=== PATIENT | female | born 1945 | race Caucasian/White ===

== ENCOUNTER 2018-07-16 08:21 | Day surgery (SDC) | payer OTHER, BC ==
--- OUTSIDE RECORDS SUMMARY | 2018-07-16 08:26 | XMS REPORT | Clinical Summary ---
:1945 Author Organization [facility] Address [address] [place] [address] Care Team Providers Name Role Phone Asked, No Pcp Primary Care Provider Unavailable Allergies Active Allergy Reactions Severity Noted Date Comments Codeine GI Bleeding 04/06/2017 Meperidine Other (See Comments) High 04/06/2017 seizures Medications Medication Sig Dispensed Refills Start Date End Date Status levothyroxine Take 100 mcg by 0 Active (SYNTHROID, LEVOXYL) 100 mouth daily. mcg tablet amLODIPine (NORVASC) 10 Take 12.5 mg by 0 Active mg tablet mouth daily. losartan (COZAAR) 100 MG Take 100 mg by 0 Active tablet mouth daily. gabapentin (NEURONTIN) Take 300 mg by 0 Active 300 mg capsule mouth 2 (two) times a day. HYDROcodone-acetaminophe Take 1 tablet by 0 Active n (NORCO) 5-325 mg per mouth. tablet ibandronate (BONIVA) 150 Take 150 mg by 0 Active mg tablet mouth every 30 (thirty) days. Take in AM with glass of water prior to food, don't lie down for 30 minutes. metroNIDAZOLE (FLAGYL) Take 500 mg by 0 Active 500 MG tablet mouth 3 (three) times a day. therapeutic multivitamin Take 1 tablet by 0 Active (THERAGRAN) tablet mouth daily. aspirin (ECOTRIN) 81 MG Take 81 mg by 0 Active enteric coated tablet mouth daily. cetirizine (ZyrTEC) 10 Take 10 mg by 0 Active MG tablet mouth daily. Active Problems Not on file Family History Medical History Relation Name Comments Cancer Father Cancer Maternal Grandmother Diabetes Paternal Grandmother Cancer Sister Relation Name Status Comments Father Maternal Grandmother Paternal Grandmother Sister Social History Tobacco Use Types Packs/Day Years Used Date Current Every Day Smoker Cigarettes 0.25 30 Smokeless Tobacco: Never Used Alcohol Use Drinks/Week oz/Week Comments Yes 1 Glasses of wine 0.6 Sex Assigned at Date Recorded Not on file Job Start Date Occupation Industry Not on file Not on file Not on file Travel History Travel Start Travel End No recent travel history available. Last Filed Vital Signs Not on file Plan of Treatment Not on file Results Not on fileafter 07/15/2017 Insurance Payer Benefit Plan / Group Subscriber ID Type Phone Address BCBS BCBS CHOICE PPO/FEDERAL EMPL PPO xxxxxxxxxxxx PPO MEDICARE MEDICARE PART A AND B xxxxxxxxxx Medicare [place], [place] [facility] ([place] [place] [address] Advance Directives Patient has advance care planning documents on file. For more information, please contact:Preet Woods[address] [place] [address]
[2018-07-16] MEDS ORDERED: PHENYLEPHRINE 10% OPTH 5ML ONE (09:18)
[2018-07-16] MEDS ORDERED: NA CHLORIDE 0.9% 500 ML ONE (09:18)
[2018-07-16] MEDS ORDERED: CYCLOPENTOLATE 1% OPTH 2 ML ONE (09:19)
[2018-07-16] MEDS ORDERED: CYCLOPENTOLATE 1% OPTH 2 ML OPTH ONE ×2 (09:20→09:27)
[2018-07-16] MEDS ORDERED: PHENYLEPHRINE 10% OPTH 5ML OPTH ONE ×2 (09:20→09:27)
[2018-07-16] MEDS: TETRACAINE HCL 0.5% 4ML OPTH ONE ×2 (09:22→10:45)
[2018-07-16] MEDS: BUPIVACAINE 0.25% PF 10 ML VIAL ONE ×2 (09:23→10:46)
[2018-07-16] MEDS: LIDOCAINE 2% MPF 5 ML VIAL ONE ×2 (09:23→10:46)
[2018-07-16] MEDS ORDERED: NS 0.9% VIAL 10 ML ONE (09:54)
[2018-07-16 10:01] VITALS: O2SAT 97
[2018-07-16] MEDS: BALANCED SALT IRRIG PLAIN 500 ML BTL IRR ONE ×2 (10:19→11:00)
[2018-07-16] MEDS: DUOVISC 1 KIT OPTH ONE ×2 (10:19→11:00)
[2018-07-16] MEDS: EPINEPHRINE/PF 1 MG/ML AMP ONE ×2 (10:19→11:00)
[2018-07-16] MEDS: MOXIFLOXACIN HCL 10 DROPS/ML **OR USE OPTH ONE ×3 (10:20→11:31)
[2018-07-16] MEDS ORDERED: PROPOFOL 200 MG/20 ML VIAL IV ONE (10:30)
[2018-07-16] MEDS ORDERED: METHOCARBAMOL IV ONE (10:45)
[2018-07-16] MEDS ORDERED: NA CHLORIDE 0.9% IV ONE (10:45)
[2018-07-16] MEDS ORDERED: LIDOCAINE 2% MPF 5 ML VIAL ONE (10:47)
[2018-07-16] MEDS ORDERED: FENTANYL CITR 100 MCG/2 ML ONE (10:53)
--- NOTE | 2018-07-16 11:41 | P.BOP ---
Preoperative diagnosis: Nuclear sclerotic cataract and regular astigmatism OD Postoperative diagnosis: Same Primary procedure: Phacoemulsification with Toric IOL OD Estimated blood loss: None Anesthesia: Local (Subtenon's infusion with anesthesia for cataract surgery) Implants: SA6AT5 +17.5 @ 168 Transferred to: Other (Day surgery) Condition: Good
[2018-07-16 11:57] VITALS: BP 124/56; TEMP 98.1
[2018-07-16] MEDS ORDERED: EPINEPHRINE/PF 1 MG/ML AMP ONE (12:01)
--- NOTE | 2018-07-16 22:51 | OP ---
Date of Procedure: 07/16/2018 Surgeon: Brianda Bates MD Anesthesiologist: Sola Cochran CRNA and Mike Patel M.D. Preoperative Diagnosis: Nuclear sclerotic cataract and regular astigmatism, OD( right eye). Operation Performed: Phacoemulsification with Toric intraocular lens implant, right eye. Anesthesia: per cataract surgery. Complications: None. Description Of Procedure: In day surgery, the patient was prepped with Betadine and draped. A conjunctival incision was made in the inferior nasal quadrant with Azeb scissors. A sub-Tenon block consisting of a 1:1 mixture of 2% Xylocaine and 0.25% bupivacaine was placed through the conjunctival incision with a blunt cannula. A Honan balloon was placed over the eye and the patient was transferred to the operating room. In the operating room, the patient was prepped and draped in the usual sterile fashion for ophthalmic surgery. A lid speculum was placed in the right eye. Two paracentesis sites were made superiorly and inferiorly in the limbal cornea. Viscoat was placed in the anterior chamber and a crescent blade was used to make a corneal groove and tunnel, and a keratome was used to enter the anterior chamber. Provisc was placed in the anterior chamber and a 360-degree capsulotomy was performed with a cystitome. The lens was hydrodissected with BSS and rotated freely. The lens was removed with a stop and chop technique. A 6.93 phaco CDE was used to remove the lens. Residual cortex was removed with the irrigation and aspiration. Provisc was placed in the capsular bag. A SA6AT5 +17.5 at 168 degrees lens was placed in the capsular bag without complications. Irrigation and aspiration were used to remove residual viscoelastic. The paracentesis sites were hydrated with BSS. The wound and paracentesis sites were inspected and found to be watertight. Vigamox 0.07 cc was placed intracamerally at the end of the procedure. The eye was irrigated with balanced salt solution. The eye was patched with a soft cotton patch and Navas metal shield. The patient was returned to day surgery in good condition. Comments: 1:5000 epinephrine was placed in the anterior chamber prior to Viscoat. Discharge Instructions: Ms. Garcia is discharged to home in good condition. She is to follow up at 3 today and in the a.m. JHL/MODL Voice ID: [id number] Report ID: [id number] RHONDA
== END 2018-07-16 12:17 | disposition home or self-care (01) ==
LOC: OR 08:21
PROVIDERS: ATTEND Ophthalmology Retina Specialist
PROC: 08RJ3JZ Replacement of Right Lens with Synthetic Substitute, Percutaneous Approach (ICD-10-PCS; principal; 2018-07-16 10:00)
DX: H25.11 Age-related nuclear cataract, right eye (principal); E03.9 Hypothyroidism, unspecified; I10 Essential (primary) hypertension; Z79.82 Long term (current) use of aspirin; Z79.899 Other long term (current) drug therapy; H52.221 Regular astigmatism, right eye
CPT/HCPCS: 66984; J2704; J0171 ×2; J3010; J2800

== ENCOUNTER 2018-09-10 12:52 | Day surgery (SDC) | payer OTHER, BC ==
[2018-09-10] MEDS: MOXIFLOXACIN HCL 10 DROPS/ML **OR USE OPTH ONE ×3 (12:45→14:36)
--- OUTSIDE RECORDS SUMMARY | 2018-09-10 12:55 | XMS REPORT | Clinical Summary ---
:1945 Author Organization [facility] Address [address] [place] [address] Care Team Providers Name Role Phone Asked, [...] Not on file Results Not on fileafter 09/09/2017 Insurance Payer Benefit Plan / Subscriber ID Effective Dates Phone Address Type Group BCBS BCBS CHOICE xxxxxxxxxxxx 2013-Present PPO PPO/FEDERAL EMPL PPO MEDICARE MEDICARE PART A xxxxxxxxxx 2017-Present [place], [place] Medicare AND B Advance Directives Patient has advance care planning documents on file. For more information, please contact:[place] [address]
[2018-09-10] MEDS: TETRACAINE HCL 0.5% 4ML OPTH ONE ×2 (13:10→14:18)
[2018-09-10] MEDS: BUPIVACAINE 0.25% PF 10 ML VIAL ONE ×2 (13:11→14:19)
[2018-09-10] MEDS: LIDOCAINE 2% MPF 5 ML VIAL ONE ×2 (13:11→14:19)
[2018-09-10] MEDS: PHENYLEPHRINE 10% OPTH 5ML ONE ×3 (13:13→13:23)
[2018-09-10] MEDS: CYCLOPENTOLATE 1% OPTH 2 ML ONE ×3 (13:13→13:23)
[2018-09-10] MEDS ORDERED: NA CHLORIDE 0.9% 500 ML ONE (13:21)
[2018-09-10] MEDS ORDERED: NS 0.9% VIAL 10 ML ONE (13:24)
[2018-09-10] MEDS: DUOVISC 1 KIT OPTH ONE ×2 (13:53→14:31)
[2018-09-10] MEDS: BALANCED SALT IRRIG PLAIN 500 ML BTL IRR ONE ×2 (13:53→14:31)
[2018-09-10] MEDS: EPINEPHRINE/PF 1 MG/ML AMP ONE ×4 (13:58→14:38)
[2018-09-10] MEDS ORDERED: LIDOCAINE 2% MPF 5 ML VIAL ONE (14:14)
[2018-09-10] MEDS ORDERED: PROPOFOL 200 MG/20 ML VIAL IV ONE (14:14)
--- NOTE | 2018-09-10 14:57 | P.BOP ---
Preoperative diagnosis: Nuclear sclerotic cataract and regular astigmatism OS Postoperative diagnosis: Same Primary procedure: Phacoemulsification with IOL OS Estimated blood loss: None Anesthesia: Local (Subtenon's infusion with anesthesia for cataract surgery) Complications: None Implants: SA6AT4 +17.5 @ 11 degrees Transferred to: Other (Day surgery) Condition: Good
[2018-09-10 15:20] VITALS: BP 127/60; TEMP 97; O2SAT 98
--- NOTE | 2018-09-11 01:47 | OP ---
Date of Procedure: 09/10/2018 Surgeon: Brianda Bates MD Anesthesiologist: Alina Salomon CRNA and Mike Patel M.D. Preoperative Diagnosis: Nuclear sclerotic cataract, OS and regular astigmatism, OS (left eye). Operation Performed: Phacoemulsification with toric intraocular lens implant, left eye. Anesthesia: Per cataract surgery. Complications: None. Description Of Procedure: In day surgery, the patient was prepped with Betadine and draped. A conju nctival incision was made in the inferior nasal quadrant with Azeb scissors. A sub-Tenon block c onsisting of a 1:1 mixture of 2% Xylocaine and 0.25% bupivacaine was placed through the conjunctival incision with a blunt cannula. A Honan balloon was placed over the eye and the patient was transferr ed to the operating room. In the operating room, the patient was prepped and draped in the usual sterile fashion for ophthalmic surgery. A lid speculum was placed in the left eye. Two paracentesis sites were made superiorly an d inferiorly in the limbal cornea. Viscoat was placed in the anterior chamber and a crescent blade w as used to make a corneal groove and tunnel, and a keratome was used to enter the anterior chamber. Provisc was placed in the anterior chamber and a 360-degree capsulotomy was performed with a cystitom e. The lens was hydrodissected with BSS and rotated freely. The lens was removed with a stop and ch op technique. A 6.11 phaco CDE was used to remove the lens. Residual cortex was removed with the ir rigation and aspiration. Provisc was placed in the capsular bag. A SA6AT4 +17.5 at 11 degrees lens was placed in the capsular bag without complications. Irrigation and aspiration were used to remove residual viscoelastic. The paracentesis sites were hydrated with BSS. The wound and paracentesis si jeremy were inspected and found to be watertight. Vigamox 0.07 cc was placed intracamerally at the end of the procedure. The eye was irrigated with balanced salt solution. The eye was patched with a sof t cotton patch and Navas metal shield. The patient was returned to day surgery in good condition. Comments: 1:5000 epinephrine was placed in the eye prior to Viscoat. Discharge Instructions: Ms. Garcia is discharged to home in good condition. She is to follow up tod ay in the office to check her pressure and then in the a.m. DONYA/BARBARA Voice ID: [id number] Report ID: [id number]
== END 2018-09-10 15:20 | disposition home or self-care (01) ==
LOC: OR 12:52
PROVIDERS: ATTEND Ophthalmology Retina Specialist
PROC: 08RK3JZ Replacement of Left Lens with Synthetic Substitute, Percutaneous Approach (ICD-10-PCS; principal; 2018-09-10 12:00)
DX: H25.12 Age-related nuclear cataract, left eye (principal); H40.052 Ocular hypertension, left eye; H52.222 Regular astigmatism, left eye; E07.9 Disorder of thyroid, unspecified; F17.200 Nicotine dependence, unspecified, uncomplicated; Z79.82 Long term (current) use of aspirin; Z79.899 Other long term (current) drug therapy
CPT/HCPCS: 66984; J2704; J0171 ×2

== ENCOUNTER 2021-08-16 10:56 | Day surgery (SDC) | payer OTHER, BC ==
[2021-08-13 10:09] LABS: Absolute Lymphocytes (CBC) 2.1 K/uL (0.7-4.9); Hematocrit 38.8 % (36.0-45.0); Lymphocytes % 14.8 % (15.3-44.8); RBC Red Blood Cell Count 4.45 M/uL (3.86-4.86)
--- NOTE | 2021-08-13 10:15 | RAD REPORT ---
EXAM DESCRIPTION: RAD - Chest Pa And Lat (2 Views) - 08/13/2021 10:06 am CLINICAL HISTORY: Pre op pending heart cath COMPARISON: CT chest 11/09/2020 TECHNIQUE: Frontal and lateral views of the chest were obtained. FINDINGS: The lungs are normal volume. Minimal stranding at the left base is probably scarring or shaw bsegmental atelectasis. Acute infiltrate is not suspected. Interstitial pattern matches the CT study . Heart size is normal and central vasculature is within normal limits. No pleural effusion or pneumo thorax seen. No acute bony finding noted. Aortic atherosclerotic calcifications present without ane urysm. IMPRESSION: Minimal lung base parenchymal scarring. No acute cardiopulmonary finding.
[2021-08-13 10:43] LABS: Protime INR 0.93
--- NOTE | 2021-08-14 14:56 | EKG ---
Test Date: 2021-08-13 Test Time: 08:45:42 Blow Machine Tender Starch Spraying: DALI MEASUREMENT RESULTS: Intervals: Rate: 73 AR: 176 QRSD: 98 QT: 412 QTc: 453 [place]: P: 29 AR: 176 QRS: -37 T: 46 INTERPRETIVE STATEMENTS: Normal sinus rhythm Left axis deviation Moderate voltage criteria for LVH, may be normal variant Possible Lateral infarct, age undetermined Abnormal ECG Compared to ECG 05/08/2017 10:43:04 Left ventricular hypertrophy now present Myocardial infarct finding now present Sinus bradycardia no longer present Electronically Signed On 08-14-21 14:54:03 CDT by Angelo Mcmullen
[~2021-08-16 10:56] MED LIST: NA CHLORIDE 0.9% 500 ML ONE
[2021-08-16] MEDS ORDERED: MIDAZOLAM HCL 2 MG/2 ML INJ ONE (11:40)
[2021-08-16] MEDS ORDERED: HEPARIN 10,000 UNIT/10 ML VIAL IV ONE (11:40)
[2021-08-16] MEDS ORDERED: VERAPAMIL HCL 10 MG/4 ML VIAL IV ONE (11:40)
[2021-08-16] MEDS ORDERED: HEPARIN 5000 UNIT/ML 1 ML VIAL ONE (11:40)
[2021-08-16] MEDS ORDERED: FENTANYL CITR 100 MCG/2 ML ONE (11:40)
[2021-08-16] MEDS ORDERED: TICAGRELOR 90 MG TABLET PO ONE (11:56)
[2021-08-16] MEDS ORDERED: ASPIRIN 325 MG TAB ONE (11:56)
[2021-08-16] MEDS ORDERED: CLOPIDOGREL 75 MG TABLET ONE (11:56)
[2021-08-16] MEDS ORDERED: ATROPINE SULF 1 MG/10 ML SYR IV ONE (11:57)
[2021-08-16] MEDS ORDERED: NA CHLORIDE 0.9% 100 ML IV ONE (12:04)
[2021-08-16 15:48] VITALS: BP 142/57; O2SAT 95
--- NOTE | 2021-08-17 00:24 | OP ---
Date of Procedure: 08/16/2021 Surgeon: MARU DAVIDSON Procedure Performed: 1.Selective coronary angiogram. 2.Left heart catheterization. 3.Right heart catheterization. Indication: Aortic valve stenosis evaluation with significant shortness of breath on exertion. Access: 1.Right radial artery, 6-Indian, closed with TR band. 2.Right IJ, 7-Indian, closed with manual pressure. Complications: None. Bleeding: Less than 10 mL. Used Versed and fentanyl for sedation. Total sedation time was 45 minutes. Description Of Procedure: After risks, benefits, alternatives were explained, the patient agreed to proceed and signed informed consent. The patient was brought into the cardiac catheterization labora tory, prepped and draped in usual sterile fashion. Then, we accessed the right radial artery using p ediatric micropuncture kit, placed a 6-Indian Slender sheath, and took a micropuncture kit and access ed right IJ with ultrasound guidance, placed a 7-Indian Taylors sheath. Then I took 7-Indian balloo n-tipped Throckmorton catheter into the right atrium, right ventricle, pulmonary artery, and wedge and obtain ed waveform and pressure. Then, I did the thermodilution cardiac output measurements, then removed t he Throckmorton. Then I took a [place] 5-Indian 4.0 catheter into the aortic root over a J-wire through the ra dial access, engaged left main and right coronary artery, took standard views. Then, the same cathet er over the J-wire crossed into the LAD, recorded LVEDP and pullback recorded very mild gradient. Th en removed the catheter and the sheath, placed TR band, good hemostasis. Removed the IJ sheath and m anual pressure was used with good hemostasis. Findings: 1.Left main: Large and normal. 2.LAD: Pryannza-vr-gbvys size with midportion diffuse 10% to 20% and then luminal irregularities. Diagonal branches with luminal irregularities. 3.Left circumflex: Large and dominant with distal 30% to 40% stenosis, non-flow limiting. OM bran hes are normal. 4.RCA: It is a nondominant moderate-sized vessel, no significant disease. 5.The LVEDP normal at 8 mmHg. Right Heart Catheterization: RA pressure was 3, RV pressure 18/4, mean of 5. PA pressure 25/8 with mean of 16. Pulmonary wedge pressure was 4. The mean gradient across aortic valve was 8.5 mmHg, and valve area was 1.85 square cm. Conclusion: 1.Mild nonobstructive coronary artery disease. 2.Mild aortic valve stenosis. 3.Normal left and right filling pressures. Plan: Medical management. /BARBARA Voice ID: [id number] Report ID: [id number]
== END 2021-08-16 16:05 | disposition home or self-care (01) ==
LOC: CCL 10:56
PROVIDERS: ATTEND Internal Medicine
DX: I35.2 Nonrheumatic aortic (valve) stenosis with insufficiency (principal); I25.10 Atherosclerotic heart disease of native coronary artery without angina pectoris; I10 Essential (primary) hypertension; E78.5 Hyperlipidemia, unspecified; I65.23 Occlusion and stenosis of bilateral carotid arteries; F17.210 Nicotine dependence, cigarettes, uncomplicated; Z88.5 Allergy status to narcotic agent; Z91.02 Food additives allergy status; Z79.899 Other long term (current) drug therapy; Z20.822 Contact with and (suspected) exposure to COVID-19
CPT/HCPCS: 93005; 85025; 80048; 36415; 85610; 85730; 71046; 93460; U0003; C1893; Q9967; J1644; J2250; J3010; J7040

== ENCOUNTER 2023-01-27 11:42 | Day surgery (SDC) | payer OTHER, BC ==
[2023-01-26 13:19] LABS: Absolute Lymphocytes (CBC) 2.7 K/uL (0.7-4.9); Hematocrit 36.7 % (36.0-45.0); Lymphocytes % 32.7 % (15.3-44.8); MCV 88.3 fL (80-100); Platelets 242 thou/uL (152-406); RBC Red Blood Cell Count 4.16 M/uL (3.86-4.86)
[2023-01-26 13:27] LABS: Protime INR 0.97
[2023-01-26 13:32] LABS: Potassium 3.6 mEq/L (3.5-5.1)
--- NOTE | 2023-01-26 14:14 | RAD REPORT ---
EXAM DESCRIPTION: Heidi Schneider And Alberto (2 Views)01/26/2023 1:33 pm CLINICAL HISTORY: Preop for cardiac catheterization. Hypertension COMPARISON: 2021 FINDINGS: The lungs appear clear of acute infiltrate. The heart is normal size IMPRESSION: No acute abnormalities displayed
[2023-01-27] MEDS ORDERED: NA CHLORIDE 0.9% 500 ML ONE (11:58)
[2023-01-27] MEDS ORDERED: FENTANYL CITR 100 MCG/2 ML ONE (12:40)
[2023-01-27] MEDS ORDERED: HEPA 1000U/500MLS 2,000 UNIT/1,000 ML BAG IV ONE (12:40)
[2023-01-27] MEDS ORDERED: MIDAZOLAM HCL 2 MG/2 ML INJ ONE (12:40)
[2023-01-27] MEDS ORDERED: ATROPINE SULF 1 MG/10 ML SYR IV ONE (12:41)
[2023-01-27] MEDS ORDERED: HEPARIN 10,000 UNIT/10 ML VIAL IV ONE (12:41)
[2023-01-27] MEDS ORDERED: ASPIRIN 325 MG TAB ONE (12:41)
[2023-01-27] MEDS ORDERED: TICAGRELOR 90 MG TABLET PO ONE (12:41)
[2023-01-27] MEDS ORDERED: HEPARIN 5000 UNIT/ML 1 ML VIAL ONE (12:41)
[2023-01-27] MEDS ORDERED: VERAPAMIL HCL 10 MG/4 ML VIAL IV ONE (12:41)
[2023-01-27] MEDS ORDERED: CLOPIDOGREL 75 MG TABLET ONE (12:41)
--- NOTE | 2023-01-27 15:47 | EKG ---
Test Date: 2023-01-26 Test Time: 13:00:47 Dairy Equipment Installer: DALI MEASUREMENT RESULTS: Intervals: Rate: 67 WI: 196 QRSD: 100 QT: 428 QTc: 452 [place]: P: 27 WI: 196 QRS: -43 T: 36 INTERPRETIVE STATEMENTS: Normal sinus rhythm Left axis deviation Incomplete right bundle branch block Moderate voltage criteria for LVH, may be normal variant Possible Lateral infarct, age undetermined Abnormal ECG Compared to ECG 08/13/2021 08:45:42 Incomplete right bundle-branch block now present Myocardial infarct finding still present Electronically Signed On 01-27-23 15:42:57 CDT by Angelo Mcmullen
--- NOTE | 2023-01-27 16:25 | OP ---
Date of Procedure: 01/27/2023 Surgeon: MARU DAVIDSON Procedures Performed: 1.Selective coronary angiogram. 2.Left heart catheterization. 3.Right heart catheterization. Indication: Evaluation of aortic valve stenosis, severity and chest pain. Access: 1.Right radial artery 6-Kittitian closed with TR band. 2.Right IJ 7-Kittitian closed with the manual pressure. Complications: None. Bleeding: Less than 20 mL. Anesthesia: Total sedation time was for 50 minutes. Description Of Procedure: After risks, benefits, alternatives were explained, patient agreed to proc edure and signed informal consent. After risks, benefits, and alternatives were explained, patient w as brought into the cardiac catheterization laboratory and then prepped and draped in usual sterile f ashion. Then, I accessed right radial artery using pediatric micropuncture kit, placed a 6-Kittitian Sl donald sheath and took a 5-Kittitian [place] 4.0 catheter into aortic root, engaged the left main and right coronary artery, took standard views and catheter was pushed over the wire into the LV and the pullb ack recorded the gradient and then removed the catheter and then used a balloon tipped 7-Kittitian [place] catheter through the IJ access into the right atrium, right ventricle, PA, and wedge, obtained wavefo rm and pressure and then obtained a thermodilutional cardiac output and then removed the catheter and then removed the neck sheath and applied manual pressure and radial sheath was removed and TR band w as placed and the patient was sent to Recovery in stable condition. Findings: 1.Left coronary angiogram: a.Left main is normal. b.LAD; proximal to mid diffuse 30% to 40%. The rest of the LAD is normal. Normal diagonal branches . c.Left circumflex; it is a large size vessel with mid to distal 40%. d.RCA; large and dominant and mid 30%. 2.Right heart cath numbers: RA pressure is 4. RV pressure is 21/9, mean of 11. PA pressure is 21/ 15, mean of 18. Pulmonary wedge pressure was 6. LVEDP was 21 mmHg and the mean gradient was 12 mmHg and valve area was 1.55 sq cm, and the cardiac output average was 4.6 L/minute. Conclusion: 1.Hfik-aj-qzaqpbba coronary artery disease, nonobstructive. 2.Moderate aortic valve stenosis with a valve area of 1.50. Plan: Medical management. SR/MODL Voice ID: [id number] Report ID: [id number]
[2023-01-27 17:16] VITALS: TEMP 98
[2023-01-27 18:50] VITALS: O2SAT 95
[2023-01-27 18:51] VITALS: BP 135/61
== END 2023-01-27 17:35 | disposition home or self-care (01) ==
LOC: CCL 11:42
PROVIDERS: ATTEND Internal Medicine
DX: I35.0 Nonrheumatic aortic (valve) stenosis (principal); I25.10 Atherosclerotic heart disease of native coronary artery without angina pectoris; I45.10 Unspecified right bundle-branch block; I65.29 Occlusion and stenosis of unspecified carotid artery; I10 Essential (primary) hypertension; E78.5 Hyperlipidemia, unspecified; F17.210 Nicotine dependence, cigarettes, uncomplicated; Z79.899 Other long term (current) drug therapy; Z88.5 Allergy status to narcotic agent; Z88.8 Allergy status to other drugs, medicaments and biological substances; Z91.02 Food additives allergy status
CPT/HCPCS: 93005; 85025; 80048; 36415; 83721; 85610; 85730; 71046; 93460; 76937; C1893; Q9966; J1644; J2250; J3010; J7040; J0461

== ENCOUNTER 2024-06-22 13:30 | Observation (INO) | payer OTHER ==
[2024-06-22 14:07] LABS: Absolute Basophils 0.1 K/uL (0-0.5); Absolute Eosinophils 0.3 K/uL (0-0.5); Absolute Monocytes 0.7 K/uL (0.1-1.3); Absolute Neutrophil 3.7 K/uL (1.8-8.0); Basophils % 1.1 % (0-1.3); Eosinophils % 3.2 % (0-4.4); Hematocrit 37.8 % (36.0-45.0); Hemoglobin 12.9 g/dL (12.0-15.0); Lymphocytes % 45.8 % (15.3-44.8); MCH 29.7 pg (27.0-35.0); MCHC 34.1 g/dL (32.0-36.0); MCV 87.1 fL (80-100); MPV 9.1 fL (7.6-11.3); Neutrophils % 41.9 % (41.7-73.7); Nucleated Red Blood Cells % 0.2 % (0-0); Platelets 223 thou/uL (152-406); RBC Red Blood Cell Count 4.34 M/uL (3.86-4.86); Red Cell Distribution Width 12.4 % (12.1-15.2)
[2024-06-22 14:14] LABS: PT Prothrombin Time 10.7 SECONDS (10-13.0); Protime INR 0.94
[2024-06-22 14:31] LABS: Albumin 4.1 g/dL (3.4-5.0); Albumin/Globulin Ratio 1.3 (1.1-1.8); Anion Gap 10.5 mEq/L (5.0-15.0); Bilirubin Direct 0.2 mg/dL (0-0.2); Bilirubin Indirect, Calculated 0.4 mg/dL (0.2-0.8); Bilirubin Total 0.6 mg/dL (0.2-1.0); Globulin 3.1 g/dL (2.3-3.5); Magnesium 2.4 mg/dL (1.6-2.4); Potassium 3.5 mEq/L (3.5-5.1); Protein, Total 7.2 g/dL (6.4-8.2); Troponin High Sensitivity 4.5 pg/mL (<58.9)
--- NOTE | 2024-06-22 14:49 | RAD REPORT ---
Procedure: Chest Single View HISTORY: Chest pain COMPARISON: 2022 FINDINGS: The lungs appear clear of acute infiltrate. No significant pleural effusion noted. The heart is normal size. IMPRESSION: No acute abnormality is displayed.
--- NOTE | 2024-06-22 14:57 | ER ---
Nurse's Notes [facility] Name: Federica Garcia Age: 79 yrs Sex: Female : 1945 Arrival Date: 06/22/2024 Time: 13:30 Bed 17 Private MD: Diagnosis: Chest pain Presentation: 06/22 13:33 Acuity: UZIEL 2 aa5 13:33 Onset of symptoms was June 22, 2024. aa5 13:33 Chief complaint: Patient states: woke up with pain to left side of neck and around 1230 aa5 today had sudden onset of mid-sternal chest pain. EMS reports pt was tachypneic and c/o charissa arms tingling upon their arrival. ASA 324mg PO was administered by EMS MOTTLER OPERATOR and 20G to R AC by EMS. 13:33 Coronavirus screen: At this time, the client does not indicate any symptoms associated aa5 with coronavirus-19. Ebola Screen: Patient denies travel to an Ebola-affected area in the 21 days before illness onset. Initial Sepsis Screen: Does the patient meet any 2 criteria? No. Patient's initial sepsis screen is negative. Does the patient have a suspected source of infection? No. Patient's initial sepsis screen is negative. Risk Assessment: Do you want to hurt yourself or someone else? Patient reports no desire to harm self or others. 13:33 Method Of Arrival: Ambulatory aa5 13:33 Care prior to arrival: Glucose check: 87. aa5 Historical: - Allergies: 13:33 Codeine; aa5 13:33 meperidine; aa5 - Home Meds: 14:06 amitriptyline 50 mg Oral tablet daily [Active]; amlodipine 10 mg tablet daily [Active]; aa5 atorvastatin 40 mg oral tablet daily [Active]; brimonidine 0.15 % ophthalmic (eye) drops 1 drop BID [Active]; diclofenac sodium 1 % topical gel as needed for pain [Active]; estradiol vaginal [Active]; gabapentin 600 mg oral tablet daily [Active]; hydrocodone-acetaminophen 7.5-325 mg Oral tablet as needed for pain [Active]; ibandronate 150 mg oral tablet every month [Active]; levothyroxine 88 mcg capsule daily [Active]; losartan 100 mg oral tablet daily [Active]; primidone 50 mg Oral tablet daily for essential tremor [Active]; celecoxib 200 mg Oral capsule for pain [Active]; Aspirin 81mg Oral daily [Active]; - PMHx: 13:33 Chronic back pain; Hypothyroidism; Hypertensive disorder; Hypercholesterolemia; Nerve aa5 pain; - PSHx: 13:33 hysterectomy; Tonsillectomy; Adenoid excision; Back sx; Bladder lift; Shoulder- Right; aa5 Cataracts; - Immunization history:: Adult Immunizations unknown. - Infectious Disease History:: Denies. Denies. - Social history:: Smoking status: Patient denies any tobacco usage or history of. Screenin:35 [facility] ED Fall Risk Assessment (Adult) History of falling in the last 3 months, kj2 including since admission No falls in past 3 months (0 pts) Confusion or Disorientation No (0 pts) Intoxicated or Sedated No (0 pts) Impaired Gait No (0 pts) Mobility Assist Device Used No (0 pt) Altered Elimination No (0 pt) Score/Fall Risk Level 0 - 2 = Low Risk Maintained a safe environment, Hourly rounding (assess needs \T\ fall precautionary measures) done. Abuse screen: Denies threats or abuse. Denies injuries from another. Nutritional screening: No deficits noted. Tuberculosis screening: No symptoms or risk factors identified. Assessment: 14:34 General: Appears in no apparent distress. Behavior is calm, cooperative. Pain: kj2 Complains of pain in chest Pain does not radiate. Pain began gradually. Neuro: Level of Consciousness is awake, alert, obeys commands. Cardiovascular: Patient's skin is warm and dry. Respiratory: Airway is patent Respiratory effort is even, unlabored. GI: No signs and/or symptoms were reported involving the gastrointestinal system. : No signs and/or symptoms were reported regarding the genitourinary system. 15:35 Reassessment: Patient appears in no apparent distress at this time. Patient and/or kj2 family updated on plan of care and expected duration. Pain level reassessed. Patient is alert, oriented x 3, equal unlabored respirations, skin warm/dry/pink. 16:35 Reassessment: Patient appears in no apparent distress at this time. Patient and/or kj2 family updated on plan of care and expected duration. Pain level reassessed. Patient is alert, oriented x 3, equal unlabored respirations, skin warm/dry/pink. Vital Signs: 13:33 BP 149 / 62; Pulse 68; Resp 24 S; Temp 97.8(TE); Pulse Ox 100% on R/A; Weight 63.96 kg aa5 (R); Height 5 ft. 0 in. (R); 15:35 BP 156 / 53; Pulse 76; Resp 18; Pulse Ox 97% ; kj2 16:35 BP 145 / 58; Pulse 74; Resp 20; Temp 98; Pulse Ox 100% ; kj2 13:33 Body Mass Index 27.54 (63.96 kg, 152.4 cm) aa5 ED Course: 13:33 Patient arrived in ED. aa5 13:33 Arm band placed on Patient placed in an exam room, on a stretcher. aa5 13:35 Adebayo Emerson MD is Attending Physician. sp3 13:49 EKG done, by ED staff, reviewed by Adebayo Emerson MD. aa5 13:52 Initial lab(s) drawn, by ky, sent to lab. aa5 14:00 Triage completed. aa5 14:33 Diane Dickinson, NICKI is Primary Nurse. kj2 14:35 Patient has correct armband on for positive identification. Provided Education on: call kj2 light. Client placed on continuous cardiac and pulse oximetry monitoring. NIBP monitoring applied. senior manufacturing engineer on. Pulse ox on. 14:41 XRAY Chest (1 view) In Process Unspecified. EDMS 14:55 Nasir Livingston is Hospitalizing Provider. sp3 15:57 No provider procedures requiring assistance completed. kj2 17:02 Patient maintains SpO2 saturation greater than 95% on room air. kj2 17:02 Patient admitted, IV remains in place. kj2 Administered Medications: No medications were administered Medication: 15:56 VIS not applicable for this client. kj2 Outcome: 14:56 Decision to Hospitalize by Provider. sp3 17:01 Admitted to Med/surg accompanied by tech, room 225, kj2 17:01 Condition: stable 17:01 Instructed on the need for admit, 17:03 Patient left the ED. kj2 Signatures: Dispatcher [employer] EDPR Skylar Horowitz, RN RN aa5 Adebayo Emerson MD MD sp3 Diane Dickinson RN RN kj2
--- NOTE | 2024-06-22 14:57 | EDPHYS ---
Physician Documentation [facility] Name: Federica Garcia Age: 79 yrs Sex: Female : 1945 Arrival Date: 06/22/2024 Time: 13:30 Bed 17 Private MD: ED Physician Adebayo Emerson HPI: 06/22 13:39 This 79 yrs old Female presents to ER via Unassigned with complaints of Chest Pain. sp3 13:39 79-year-old female with a history of CAD, hypertension, essential tremor, sp3 hyperlipidemia, carotid artery disease presents to the ED chief complaint chest pain started while she was cooking earlier today. Symptoms are now improved after resting. EMS twelve-lead demonstrated no ST abnormalities. Patient denies any headache, neck pain, shortness of breath, back pain, abdominal pain, nausea, vomiting, diarrhea, syncope, near syncope, rash, bleeding, or any other signs or symptoms on ROS at this time.. Historical: - Allergies: 13:33 Codeine; aa5 13:33 meperidine; aa5 - Home Meds: 14:06 amitriptyline 50 mg Oral tablet daily [Active]; amlodipine 10 mg tablet daily [Active]; aa5 atorvastatin 40 mg oral tablet daily [Active]; brimonidine 0.15 % ophthalmic (eye) drops 1 drop BID [Active]; diclofenac sodium 1 % topical gel as needed for pain [Active]; estradiol vaginal [Active]; gabapentin 600 mg oral tablet daily [Active]; hydrocodone-acetaminophen 7.5-325 mg Oral tablet as needed for pain [Active]; ibandronate 150 mg oral tablet every month [Active]; levothyroxine 88 mcg capsule daily [Active]; losartan 100 mg oral tablet daily [Active]; primidone 50 mg Oral tablet daily for essential tremor [Active]; celecoxib 200 mg Oral capsule for pain [Active]; Aspirin 81mg Oral daily [Active]; - PMHx: 13:33 Chronic back pain; Hypothyroidism; Hypertensive disorder; Hypercholesterolemia; Nerve aa5 pain; - PSHx: 13:33 hysterectomy; Tonsillectomy; Adenoid excision; Back sx; Bladder lift; Shoulder- Right; aa5 Cataracts; - Immunization history:: Adult Immunizations unknown. - Infectious Disease History:: Denies. Denies. - Social history:: Smoking status: Patient denies any tobacco usage or history of. ROS: 13:40 Constitutional: Negative for fever, chills, and weight loss, Eyes: Negative for injury, sp3 pain, redness, and discharge, Neck: Negative for injury, pain, and swelling, Respiratory: Negative for shortness of breath, cough, wheezing, and pleuritic chest pain, Abdomen/GI: Negative for abdominal pain, nausea, vomiting, diarrhea, and constipation, Back: Negative for injury and pain, MS/Extremity: Negative for injury and deformity, Skin: Negative for injury, rash, and discoloration, Neuro: Negative for headache, weakness, numbness, tingling, and seizure, 13:40 All other systems are negative, Exam: 13:41 Constitutional: This is a well developed, well nourished patient who is awake, alert, sp3 and in no acute distress. Head/Face: Normocephalic, atraumatic. Eyes: Pupils equal round and reactive to light, extra-ocular motions intact. Lids and lashes normal. Conjunctiva and sclera are non-icteric and not injected. Cornea within normal limits. Periorbital areas with no swelling, redness, or edema. ENT: Nares patent. No nasal discharge, no septal abnormalities noted. External auditory canals are clear. Oropharynx with no redness, swelling, or masses, exudates, or evidence of obstruction, uvula midline. Mucous membranes moist. Neck: Trachea midline, no thyromegaly or masses palpated, and no cervical lymphadenopathy. Supple, full range of motion without nuchal rigidity, or vertebral point tenderness. No Meningismus. Chest/axilla: Normal chest wall appearance and motion. Nontender with no deformity. No lesions are appreciated. Cardiovascular: Regular rate and rhythm with a normal S1 and S2. No gallops, murmurs, or rubs. Normal PMI, no JVD. No pulse deficits. Respiratory: Lungs have equal breath sounds bilaterally, clear to auscultation and percussion. No rales, rhonchi or wheezes noted. No increased work of breathing, no retractions or nasal flaring. Abdomen/GI: Soft, non-tender, with normal bowel sounds. No distension or tympany. No guarding or rebound. No evidence of tenderness throughout. Back: No spinal tenderness. No costovertebral tenderness. Full range of motion. Skin: Warm, dry with normal turgor. Normal color with no rashes, no lesions, and no evidence of cellulitis. MS/ Extremity: Pulses equal, no cyanosis. Neurovascular intact. Full, normal range of motion. Neuro: Awake and alert, GCS 15, oriented to person, place, time, and situation. Cranial nerves II-XII grossly intact. Motor strength 5/5 in all extremities. Sensory grossly intact. Cerebellar exam normal. Normal gait. Psych: Awake, alert, with orientation to person, place and time. Behavior, mood, and affect are within normal limits. 13:41 ECG was reviewed by the Attending Physician. 14:17 ECG was reviewed by the Attending Physician. EKG demonstrates normal sinus rhythm at 67 sp3 bpm with normal intervals, normal QRS, leftward axis and nonspecific diffuse ST/T changes without evidence of acute ischemia. Vital Signs: 13:33 BP 149 / 62; Pulse 68; Resp 24 S; Temp 97.8(TE); Pulse Ox 100% on R/A; Weight 63.96 kg aa5 (R); Height 5 ft. 0 in. (R); 15:35 BP 156 / 53; Pulse 76; Resp 18; Pulse Ox 97% ; kj2 16:35 BP 145 / 58; Pulse 74; Resp 20; Temp 98; Pulse Ox 100% ; kj2 13:33 Body Mass Index 27.54 (63.96 kg, 152.4 cm) aa5 MDM: 13:36 Medical Screening Exam initiated sp3 13:41 Data reviewed: vital signs, nurses notes, old medical records, lab test result(s), EKG, sp3 radiologic studies. ED course: 79-year-old female with PMH above now with new onset chest pain. Differential diagnosis includes acute coronary syndrome, pulmonary process, bronchitis, musculoskeletal pain, among others. I am not highly suspicious of PE, TAD, sepsis, shock or any other critical process. Workup will include EKG, chest x-ray and general labs with probable 23-hour admission and cardiology consultation if initial workup is negative.. 06/22 13:36 Order name: Basic Metabolic Panel; Complete Time: 14:39 sp3 06/22 13:36 Order name: CBC with Diff; Complete Time: 14:39 sp3 06/22 13:36 Order name: LFT's; Complete Time: 14:39 sp3 06/22 13:36 Order name: Magnesium; Complete Time: 14:39 sp3 06/22 13:36 Order name: NT PRO-BNP; Complete Time: 14:39 sp3 06/22 13:36 Order name: PT-INR; Complete Time: 14:39 sp3 06/22 13:36 Order name: Troponin HS; Complete Time: 14:39 sp3 06/22 15:30 Order name: T4 Free EDMS 06/22 15:30 Order name: Thyroid Stimulating Hormone EDMS 06/22 15:30 Order name: Urinalysis w/ reflexes EDMS 06/22 15:30 Order name: Basic Metabolic Panel EDMS 06/22 15:30 Order name: Basic Metabolic Panel EDMS 06/22 15:30 Order name: CBC with Automated Diff EDMS 06/22 15:30 Order name: CBC with Automated Diff EDMS 06/22 15:30 Order name: Lipid Profile EDMS 06/22 15:30 Order name: Lipid Profile EDMS 06/22 15:30 Order name: Magnesium EDMS 06/22 15:31 Order name: Magnesium EDMS 06/22 15:31 Order name: Phosphorus EDMS 06/22 15:31 Order name: Phosphorus EDMS 06/22 15:31 Order name: Troponin High Sensitivity EDMS 06/22 15:31 Order name: Troponin High Sensitivity EDMS 06/22 15:31 Order name: Troponin High Sensitivity EDMS 06/22 13:36 Order name: XRAY Chest (1 view); Complete Time: 14:53 sp3 06/22 13:36 Order name: Cardiac monitoring; Complete Time: 13:58 sp3 06/22 13:36 Order name: EKG - Nurse/Tech; Complete Time: 13:58 sp3 06/22 13:36 Order name: IV Saline Lock; Complete Time: 13:59 sp3 06/22 13:36 Order name: Labs collected and sent; Complete Time: 13:59 sp3 06/22 13:36 Order name: O2 Per Protocol; Complete Time: 13:59 sp3 06/22 13:36 Order name: O2 Sat Monitoring; Complete Time: 13:59 sp3 Administered Medications: No medications were administered Disposition Summary: 06/22/24 14:56 Hospitalization Ordered Notes: Hospitalization Status: Observation sp3 Provider: Nasir Livingston sp3 Location: Telemetry/MedSurg (observation) sp3 Condition: Stable sp3 Problem: an acute exacerbation sp3 Symptoms: have worsened sp3 Bed/Room Type: Standard sp3 Room Assignment: 225(06/22/24 15:42) sp Diagnosis - Chest pain sp3 Forms: - Medication Reconciliation Form sp3 - SBAR form sp3 - Leadership Thank You Letter sp3 Signatures: Dispatcher [employer] EDMS Ana Bowen Audri, RN RN aa5 Adebayo Emerson MD MD sp3 Diane Dickinson RN RN kj2 Corrections: (The following items were deleted from the chart) 13:37 13:37 BASIC METABOLIC PANEL+C.LAB.BRZ ordered. EDMS EDMS 13:37 13:37 CBC+H.LAB.BRZ ordered. EDMS EDMS 13:37 13:37 HEPATIC FUNCTION+C.LAB.BRZ ordered. EDMS EDMS 13:37 13:37 MAGNESIUM+C.LAB.BRZ ordered. EDMS EDMS 13:37 13:37 PROBNP+C.LAB.BRZ ordered. EDMS EDMS 13:37 13:37 PROTIME (+INR)+COAG.LAB.BRZ ordered. EDMS EDMS 13:37 13:37 Troponin High Sensitivity+C.LAB.BRZ ordered. EDMS EDMS 13:37 13:37 Chest Single View+RAD.RAD.BRZ ordered. EDMS EDMS 15:42 14:56 sp3 sp
--- NOTE | 2024-06-22 15:36 | P.HP ---
Certification for Inpatient Patient admitted to: Observation With expected LOS: <2 Midnights Practitioner: I am a practitioner with admitting privileges, knowledge of patient current condition, hospital course, and medical plan of care. Services: Services provided to patient in accordance with Admission requirements found in Title 42 Section 412.3 of the Code of Federal Regulations Patient History Date of Service: 06/22/24 Reason for admission: Chest pain r/o History of Present Illness: Federica Garcia is an 79 year old female with Pmhx Chronic back pain; Hypothyroidism; Hypertensive disorder; Hypercholesterolemia; Nerve pain; CAD, and right carotid stenosis who presents to the ED with severe sternal chest pain. She denies radiating and denies acid reflex. She reports having chest pain similar in January 2023 and started to see Dr. Mcmullen. She reports compliance to six month evaluations and medications. On evaluation, she reports the chest pain is less but continues. Trop and EKG negative. Laboratory evaluation unremarkable. Chest xray reports "The lungs appear clear of acute infiltrate. No significant pleural effusion noted. The heart is normal size. IMPRESSION:No acute abnormality is displayed" Federica will be admitted to hospitalist service for further evaluation of chest pain r/o, Dr. Mcmullen consulted. Allergies meperidine [From Demerol] Allergy (Severe, Verified 01/26/23 12:49) seizures codeine Allergy (Verified 01/26/23 12:49) Nausea/Vomiting/hematemesis food preservatives Allergy (Uncoded 01/26/23 12:49) Headaches, Stomach Problems Home Medications: Amlodipine Besylate 10 mg PO DAILY AFTER SUPPER 03/08/16 Ascorbic Acid [Vitamin C*] 500 mg PO DAILY 03/08/16 Calcium Carbonate/Vitamin D3 [Calcium 500-Vit D3 400 Tablet] 1 each PO DAILY 03/08/16 Cetirizine HCl [Zyrtec] 10 mg PO DAILY 03/08/16 Gabapentin [Neurontin] 600 mg PO DAILY 03/08/16 L.acidoph,Paracasei, B.lactis [Probiotic] 1 each PO DAILY 03/08/16 Levothyroxine [Synthroid*] 100 mcg PO [id number] 03/08/16 Losartan Potassium [Cozaar] 100 mg PO DAILY AFTER SUPPER 03/08/16 Multivitamin [Multivitamins] 1 each PO DAILY 03/08/16 Amitriptyline [Elavil*] 25 mg PO BEDTIME 05/08/17 Hydrocodone Bit/Acetaminophen [Hydrocodon-Acetaminophen 5-325] 1 each PO Q6HP PRN 05/08/17 Brimonidine [Alphagan P 0.15%*] 1 drops EACH EYE BID 07/12/18 Estradiol [Estrace] 1 baudilio VG DAILY 07/12/18 Ibandronate Sodium 150 mg PO ONCE 07/12/18 - Past Medical/Surgical History -: Chronic back pain -: hypertension -: hypothyroidism -: hypercholesterolemia -: nerve pain -: CAD -: right carotid stenosis -: Rt. shoulder repaired. -: Appendectomy -: Tonsillectomy -: Histerectomy -: bladder lift -: cataracts -: adenoid excision - Social History Smoking Status: Never smoker Alcohol use: No Caffeine use: No Review of Systems Other: per HPI Physical Examination - Physical Exam General: Alert, In no apparent distress, Oriented x3 HEENT: Atraumatic, Normocephalic, PERRLA Neck: Supple, 2+ carotid pulse no bruit Respiratory: Clear to auscultation bilaterally, Normal air movement Cardiovascular: Normal pulses, Regular rate/rhythm, Normal S1 S2 Capillary refill: <2 Seconds Gastrointestinal: Normal bowel sounds, Soft and benign Musculoskeletal: No clubbing Integumentary: No rashes Neurological: Normal speech, Normal tone - Studies Laboratory Data (last 24 hrs) 06/22/24 06/22/24 06/22/24 13:54 13:54 13:54 WBC 8.80 Hgb 12.9 Hct 37.8 Plt Count 223 PT 10.7 INR 0.94 Sodium 139 Potassium 3.5 BUN 10 Creatinine 0.98 Glucose 101 Magnesium 2.4 Total Bilirubin 0.6 AST 28 ALT 50 Alkaline Phosphatase 66 Assessment and Plan - Plan Assessment and Plan Chest pain r/o History of CAD - EKG: No obvious ST segment changes - troponin 4.5, Serial pending - Ordered transthoracic echocardiogram - chest x-ray reports "No acute abnormality is displayed." - Consult Cardiology - recommendations appreciated - Start daily baby aspirin and statin - Symptom control with PRN acetaminophen, nitroglycerin - continuous telemetry - TSH/FreeT4, A1C, lipid panel pending Chronic back pain Hypothyroidism Hypertensive disorder Hypercholesterolemia Nerve pain -continue home medications DVT ppx SCD Full code LOS 24 hour OBS Discharge Plan: Home Plan to discharge in: 24 Hours - Advance Directives Does patient have a Living Will: No Does patient have a Durable POA for Healthcare: No
[2024-06-22 17:10] VITALS: O2SAT 100
[2024-06-22] MEDS: ASPIRIN EC 81 MG TAB PO SCH (18:23)
[2024-06-22 18:36] VITALS: BMI 27.4
[2024-06-22] MEDS ORDERED: HYDRALAZINE HCL 20 MG/ML VIAL IV PRN (18:36)
[2024-06-22 19:17] LABS: Specific Gravity 1.007 (1.005-1.030); Urine Bilirubin NEGATIVE (Negative); Urine Blood Negative (Negative); Urine Clarity Clear (Clear); Urine Color Colorless (Yellow); Urine Glucose NEGATIVE (Negative); Urine Ketones TRACE (Negative); Urine Microscopic Reflex YN NO UMIC; Urine Nitrite NEGATIVE (Negative); Urine Protein NEGATIVE (Negative); Urine Urobilinogen Normal (Normal); Urine pH 7.5 (5.0-7.0)
[2024-06-22] MEDS: ATORVASTATIN 40 MG TAB PO SCH (20:48)
[2024-06-23] MEDS: ACETAMINOPHEN 325 MG TABLET PO PRN (00:50)
[2024-06-23 06:33] LABS: Absolute Basophils 0.1 K/uL (0-0.5); Absolute Eosinophils 0.3 K/uL (0-0.5); Absolute Lymphocytes (CBC) 2.9 K/uL (0.7-4.9); Absolute Monocytes 0.6 K/uL (0.1-1.3); Absolute Neutrophil 3.8 K/uL (1.8-8.0); Eosinophils % 3.7 % (0-4.4); Hematocrit 34.8 % (36.0-45.0); Hemoglobin 11.9 g/dL (12.0-15.0); Lymphocytes % 37.7 % (15.3-44.8); MCHC 34.3 g/dL (32.0-36.0); MCV 87.4 fL (80-100); MPV 9.1 fL (7.6-11.3); Monocytes % 7.9 % (3.3-12.3); Neutrophils % 49.7 % (41.7-73.7); Platelets 200 thou/uL (152-406); RBC Red Blood Cell Count 3.98 M/uL (3.86-4.86); Red Cell Distribution Width 12.9 % (12.1-15.2)
[2024-06-23] MEDS ORDERED: HYDROCODONE/APAP 7.5/325 MG TAB PO PRN (07:00)
[2024-06-23] MEDS ORDERED: IBANDRONATE SODIUM 150 MG PO SCH (07:00)
[2024-06-23 07:02] LABS: Anion Gap 7.5 mEq/L (5.0-15.0); Magnesium 2.6 mg/dL (1.6-2.4); Potassium 3.5 mEq/L (3.5-5.1); Thyroid Stimulating Hormone 0.858 uIU/mL (0.358-3.740); Troponin High Sensitivity 5.7 pg/mL (<58.9)
[2024-06-23] MEDS: LEVOTHYROXINE SOD 0.088 MG TAB PO SCH (09:00)
[2024-06-23] MEDS: GABAPENTIN 300 MG CAP PO SCH (09:59)
[2024-06-23] MEDS: AMITRIPTYLINE 25 MG TAB PO ONE (09:59)
--- NOTE | 2024-06-23 13:14 | P.PN ---
Date of Service: 06/23/24 Subjective Continues to c/o some sternal chest pain, mentioned pain to left neck ROS 10 point ROS as noted above, otherwise negative Physical Exam General: Alert and Oriented x3, NAD HEENT: Atraumatic, Normocephalic, PERRLA Neck: Supple, 2+ carotid pulse no bruit Respiratory: Clear BBS, Normal air movement, on RA Cardiovascular: Normal pulses, NSR, Normal S1 S2 Capillary refill: <2 Seconds Gastrointestinal: Normal bowel sounds, Soft and benign on palpation Musculoskeletal: No clubbing Integumentary: No rashes Neurological: Normal speech, Normal tone Vitals Reviewed Problem list Chest pain r/o History of CAD Chronic back pain Hypothyroidism Hypertensive disorder Hypercholesterolemia Nerve pain Assessment and Plan Chest pain r/o History of CAD - EKG: No obvious ST segment changes - troponin 4.5, Serial pending - Ordered transthoracic echocardiogram - chest x-ray reports "No acute abnormality is displayed." - Consult Cardiology - recommendations appreciated - Start daily baby aspirin and statin - Symptom control with PRN acetaminophen, nitroglycerin - continuous telemetry - TSH/FreeT4, A1C, lipid panel WNL Chronic back pain Hypothyroidism Hypertensive disorder Hypercholesterolemia Nerve pain -continue home medications DVT ppx SCD Full code LOS 24 hour OBS Discharge Plan: Home Plan to discharge in: 24 Hours
[2024-06-23] MEDS: AMLODIPINE 10 MG TAB PO SCH (16:40)
[2024-06-23] MEDS: LOSARTAN POTASSIUM 50 MG TABLET PO SCH (16:40)
[2024-06-23 16:43] VITALS: BP 139/60
--- NOTE | 2024-06-23 17:09 | CON ---
Date of Consultation: 06/23/2024 Reason For Consultation: Chest pain. History Of Present Illness: 79-year-old female, history of hypothyroidism, hypertension, dyslipidemi a, coronary artery disease, carotid stenosis, presented to the emergency room with severe sternal alicia st pain, no radiation, not related to exertion on and off, and now she is pain-free. Troponins are n egative. An EKG without any significant abnormalities. Patient was admitted for observation. Past Medical History: As outlined above in the HPI. Medications: Refer to reconciliation sheet for detailed list. Allergies: MEPERIDINE AND CODEINE. Family History: No premature coronary artery disease or cancer. Social History: She does not smoke or drink. Does not use any drugs. Review of Systems: All systems reviewed and they were negative except as mentioned in the HPI. Physical Examination: Vital Signs: Reviewed. Head and Neck: Pupils are equal, reactive to light. Intact eye movements. No JVD. No cervical lym phadenopathy. Neck is supple. Thyroid is not enlarged. Lungs: Clear to auscultation bilaterally. No rhonchi, wheezing, or crackles. No accessory muscle u se. Heart: Regular rate and rhythm. No extra sounds. Abdomen: Soft, nontender. Bowel sounds positive. No organomegaly. No masses or hernia. No rigidi ty or rebound. Extremities: No clubbing or cyanosis. Intact pulses. Skin: No rash. No nodules. Neurologic: Alert, awake, and oriented x3. No acute focal deficits appreciated. Lymph Nodes: No cervical or axillary lymphadenopathy. Investigations: She had a heart cath on January 27 that showed mild to moderate disease she had at t hat time. The LAD has diffuse in the mid segment 30% stenosis and left circ large vessel with mid to distal 40% and the RCA had only 30% and that was about 6 months ago. She has moderate aortic valve stenosis with a valve area of 1.5. Troponins are negative. BUN 11, creatinine 0.76, and hemoglobin 11.9. Assessment And Recommendations: 1. Chest pain, it is atypical, and cardiac enzymes are negative. She had coronary angiogram recently with mild coronary artery disease. No further cardiac workup is needed as an inpatient. From my pe rspective, she can be released and to follow up with me in the office and we will plan for outpatient stress test. We will do cardiac PET stress test on her and an echo to further evaluate her aortic v alve. No inpatient workup will be done at this moment. I do not believe this is an acute coronary s yndrome. 2. Dyslipidemia, on statin. Continue current management. 3. Hypertension. Blood pressure is controlled. 4. Aortic valve stenosis, moderate in severity, and is being followed on an outpatient basis. Thank you for the consult. /BARBARA Voice ID: [id number] Report ID: [id number]
[2024-06-23 17:18] VITALS: TEMP 98
--- NOTE | 2024-06-23 18:02 | P.DS ---
Admission Date: 06/22/24 Discharge Date: 06/23/24 Disposition: ROUTINE DISCHARGE Discharge Condition: FAIR Reason for Admission: Chest pain r/o Brief History of Present Illness: Diagnosis Chest pain ruled out ACS History of CAD Chronic back pain Hypothyroidism Hypertensive disorder Hypercholesterolemia Nerve pain HPI 06/22/24 Federica Garcia is an 79 year old female with Pmhx Chronic back pain; Hypothy roidism; Hypertensive disorder; Hypercholesterolemia; Nerve pain; CAD, and right carotid stenosis who presents to the ED with severe sternal chest pain. She denies radiating and denies acid reflex. She reports having chest pain similar in January 2023 and started to see Dr. Mcmullen. She reports compliance to six month evaluations and medications. On evaluation, she reports the chest pain is less but continues. Trop and EKG negative. Laboratory evaluation unremarkable. Chest xray reports "The lungs appear clear of acute infiltrate. No significant pleural effusion noted. The heart is normal size. IMPRESSION:No acute abnormality is displayed" Federica will be admitted to hospitalist service for further evaluation of chest pain r/o, Dr. Mcmullen consulted. Hospital Course: Federica was admitted and treated for the following diagnosis Chest pain ruled out ACS History of CAD - EKG: No obvious ST segment changes - troponin tended flat - transthoracic echocardiogram-will obtain outpatient per Dr. Mcmullen - chest x-ray reports "No acute abnormality is displayed." - Consult Cardiology - Cleared for discharge, See Dr. Mcmullen's note - Administered baby aspirin and statin - Symptom control with PRN acetaminophen, nitroglycerin - continuous telemetry with no acute events - TSH/FreeT4, lipid panel unremarkable Chronic back pain Hypothyroidism Hypertensive disorder Hypercholesterolemia Nerve pain -continued home medications On 06/23/24, Federica was seen on morning rounds and found to be hemodynamically stable. Dr. Mcmullen has evaluated and cleared for discharge with follow up for an outpatient cardiac PET stress test and an ECHO. Aspirin and atorvastatin were prescribed. Physical Exam General: Alert and Oriented x3, NAD HEENT: Atraumatic, Normocephalic, PERRLA Neck: Supple, 2+ carotid pulse no bruit Respiratory: Clear BBS, Normal air movement, on RA Cardiovascular: Normal pulses, NSR, Normal S1 S2 Capillary refill: <2 Seconds Gastrointestinal: Normal bowel sounds, Soft and benign on palpation Musculoskeletal: No clubbing Integumentary: No rashes Neurological: Normal speech, Normal tone Vital Signs/Physical Exam: Temp Pulse Resp BP Pulse Ox 98.0 F 72 16 139/60 98 06/23/24 16:00 06/23/24 16:40 06/23/24 16:00 06/23/24 16:40 06/23/24 16:00 Laboratory Data at Discharge: WBC 7.70 thou/uL (4.3-10.9) 06/23/24 06:01 Hgb 11.9 g/dL (12.0-15.0) L 06/23/24 06:01 Hct 34.8 % (36.0-45.0) L 06/23/24 06:01 Plt Count 200 thou/uL (152-406) 06/23/24 06:01 PT 10.7 SECONDS (10-13.0) 06/22/24 13:54 INR 0.94 06/22/24 13:54 Sodium 140 mEq/L (136-145) 06/23/24 06:01 Potassium 3.5 mEq/L (3.5-5.1) 06/23/24 06:01 BUN 11 mg/dL (7-18) 06/23/24 06:01 Creatinine 0.76 mg/dL (0.55-1.02) 06/23/24 06:01 Glucose 87 mg/dL (74-106) 06/23/24 06:01 Phosphorus 3.0 mg/dL (2.5-4.9) 06/23/24 06:01 Magnesium 2.6 mg/dL (1.6-2.4) H 06/23/24 06:01 Total Bilirubin 0.6 mg/dL (0.2-1.0) 06/22/24 13:54 AST 28 U/L (15-37) 06/22/24 13:54 ALT 50 U/L (13-56) 06/22/24 13:54 Alkaline Phosphatase 66 U/L (45-117) 06/22/24 13:54 Triglycerides 63 mg/dL (<150) 06/23/24 06:01 Cholesterol 128 mg/dL (<200) 06/23/24 06:01 HDL Cholesterol 79 mg/dL (40-60) H 06/23/24 06:01 Cholesterol/HDL Ratio 1.62 06/23/24 06:01 Home Medications: Amlodipine Besylate 10 mg PO DAILY AFTER SUPPER 03/08/16 Ascorbic Acid [Vitamin C*] 500 mg PO DAILY 03/08/16 Calcium Carbonate/Vitamin D3 [Calcium 500-Vit D3 400 Tablet] 1 each PO DAILY 03/08/16 Gabapentin [Neurontin] 600 mg PO DAILY 03/08/16 Levothyroxine [Synthroid*] 88 mcg PO [id number] 03/08/16 Losartan Potassium [Cozaar] 100 mg PO DAILY AFTER SUPPER 03/08/16 Multivitamin [Multivitamins] 1 each PO DAILY 03/08/16 Amitriptyline [Elavil*] 50 mg PO BEDTIME 05/08/17 Brimonidine [Alphagan P 0.15%*] 1 drops EACH EYE BID 07/12/18 Estradiol [Estrace] 1 baudilio VG DAILY 07/12/18 Ibandronate Sodium 150 mg PO ONCE 07/12/18 Hydrocodone/Acetaminophen [Hydrocodone-Acetamin 7.5-325] 1 each PO PRN 06/22/24 Aspirin [Aspirin EC 81 MG] 81 mg PO DAILY #30 tab 06/23/24 Atorvastatin Calcium [Lipitor] 20 mg PO BEDTIME #30 tab 06/23/24 New Medications: Aspirin [Aspirin EC 81 MG] 81 mg PO DAILY #30 tab Atorvastatin Calcium [Lipitor] 20 mg PO BEDTIME #30 tab Diet: AHA Activity: Ad earl Followup: Ángel Emerson DO [Primary Care Provider] - Angelo Mcmullen MD [ACTIVE - CAN ADMIT] - 1-2 Weeks
[2024-06-23] MEDS ORDERED: AMITRIPTYLINE 25 MG TAB PO SCH (21:00)
--- NOTE | 2024-06-24 12:05 | EKG ---
Test Date: 2024-06-22 Test Time: 13:49:34 Wet End Supervisor: JONNA MEASUREMENT RESULTS: Intervals: Rate: 67 MT: 194 QRSD: 104 QT: 440 QTc: 464 [place]: P: 31 MT: 194 QRS: -29 T: 54 INTERPRETIVE STATEMENTS: Normal sinus rhythm Normal ECG Compared to ECG 01/26/2023 13:00:47 Left-axis deviation no longer present Incomplete right bundle-branch block no longer present Left ventricular hypertrophy no longer present Myocardial infarct finding no longer present Electronically Signed On 06-24-24 12:00:20 CDT by Nick Foster
== END 2024-06-23 18:41 | disposition home or self-care (01) ==
LOC: ER 13:30 → ERHOLD 15:22 → 2ND 16:35
PROVIDERS: ADMIT Internal Medicine; ATTEND Internal Medicine
DX: R07.9 Chest pain, unspecified (principal); M54.9 Dorsalgia, unspecified; I25.10 Atherosclerotic heart disease of native coronary artery without angina pectoris; I65.21 Occlusion and stenosis of right carotid artery; E03.9 Hypothyroidism, unspecified; I10 Essential (primary) hypertension; E78.00 Pure hypercholesterolemia, unspecified; M79.2 Neuralgia and neuritis, unspecified; Z88.5 Allergy status to narcotic agent
CPT/HCPCS: 93005; 85025 ×2; 80048 ×2; 36415; 83735 ×2; 84100; 85610; 80061; 85379; 80076; 84443; 81003; 84484 ×3; 84439; 83880; 71045; 99285; G0378 ×4

== ENCOUNTER 2024-11-08 05:29 | Day surgery (SDC) | payer OTHER ==
[2024-11-05 10:13] LABS: Absolute Lymphocytes (CBC) 2.0 K/uL (0.7-4.9); Hematocrit 40.5 % (36.0-45.0); Hemoglobin 13.8 g/dL (12.0-15.0); MCH 30.0 pg (27.0-35.0); MCHC 34.1 g/dL (32.0-36.0); MCV 87.9 fL (80-100); MPV 8.3 fL (7.6-11.3); Nucleated RBC Absolute Count 0.0 (0-0); Nucleated Red Blood Cells % 0.1 % (0-0); RBC Red Blood Cell Count 4.61 M/uL (3.86-4.86); White Blood Count 6.40 thou/uL (4.3-10.9)
[2024-11-05 10:22] LABS: PT Prothrombin Time 10.8 SECONDS (10-13.0); PTT, Activated Partial Thromb 31.6 SECONDS (27.2-37.4); Protime INR 0.95
[2024-11-05 10:26] LABS: Anion Gap 6.6 mEq/L (5.0-15.0); BUN Blood Urea Nitrogen 10.0 mg/dL (7-18); Glucose Level 96.0 mg/dL (74-106); Potassium 3.6 mEq/L (3.5-5.1)
[2024-11-08] MEDS: Ringers Lactate 1,000 ML IV ONE ×2 (06:05→08:43)
[2024-11-08] MEDS ORDERED: LIDOCAINE 1% MPF 5 ML VIAL ONE (06:14)
[2024-11-08] MEDS ORDERED: EPINEPHRINE 1 MG/ML VIAL ONE (06:15)
[2024-11-08] MEDS ORDERED: FENTANYL CITR 100 MCG/2 ML ONE (06:15)
[2024-11-08] MEDS ORDERED: BUPIVACAINE 0.5% PF 10 ML VIAL ONE (06:15)
[2024-11-08] MEDS ORDERED: ROCURONIUM 50 MG/5 ML VIAL IV ONE ×2 (07:25→08:37)
[2024-11-08] MEDS ORDERED: LIDOCAINE 2% MPF 5 ML VIAL ONE (07:25)
[2024-11-08] MEDS: CEFAZOLIN SODIUM 1 GM/VIAL ONE (07:30)
[2024-11-08] MEDS ORDERED: NS 0.9% VIAL 10 ML ONE ×2 (07:31)
[2024-11-08] MEDS: EPINEPHRINE 1 MG/ML VIAL ONE (08:30)
[2024-11-08] MEDS ORDERED: GLYCOPYRROLATE 0.2 MG/ML SYR ONE (09:25)
[2024-11-08] MEDS ORDERED: NEOSTIGMINE 1 MG/ML -10 ML VIAL ONE (09:25)
--- NOTE | 2024-11-08 09:32 | P.BOP ---
Preoperative diagnosis: Left rotator cuff tear, impingement syndrome, biceps tendinitis Postoperative diagnosis: Same, left shoulder SLAP tear Primary procedure: Left shoulder arthroscopic rotator cuff repair Secondary procedure: Left shoulder arthroscopic subacromial decompression Other procedure(s): Left shoulder arthroscopic biceps tenotomy with SLAP tear debridement Steam Turbine Operator: NONE,NONE Specimen: None Findings: See dictation Anesthesia: General Complications: None Implants: Arthrex 5.5 mm corkscrew, 2 - 4.75 mm swivel lock Fluids & blood products: Per anesthesia record Transferred to: Recovery Room Condition: Good
--- NOTE | 2024-11-08 09:40 | P.OP ---
Preoperative diagnosis: Left shoulder rotator cuff tear, impingement syndrome, biceps tendinitis Postoperative diagnosis: Same, left shoulder SLAP tear Primary procedure: Left shoulder arthroscopic rotator cuff repair Secondary procedure: Left shoulder arthroscopic subacromial decompression Other procedure(s): Left shoulder arthroscopic biceps tenotomy with SLAP tear debridement Anesthesia: General Estimated blood loss: 10 cc Specimen: None Findings: See dictation Operative Technique: Indication For Procedure: Federica is an 79-year-old female who presented to my clinic with signs, symptoms, and MRI findings consistent with a left shoulder full-thickness rotator cuff tear. I discussed with the patient risks and benefits associated with operative and nonoperative treatment. She expressed understanding and elected to proceed with operative treatment. Description Of Procedure: After informed consent was obtained, the patient was identified in the preoperative holding area. The left upper extremity was marked. The patient then was brought to the PACU where she underwent a left- sided interscalene block performed by Anesthesia. The patient was brought back to the operating room, transferred to the operative table in supine fashion, placed under general endotracheal anesthesia. She was then placed in a beach chair position with her extremities well padded. The left upper extremity was then prepped and draped in usual sterile fashion. A time-out was initiated. The correct patient and procedure were performed and identified. The patient did receive preoperative prophylactic antibiotics. Via the posterior portal position, a spinal needle was introduced in the glenohumeral joint and the shoulder was injected with 30 cc of normal saline to distend the capsule. A stab incision was made posteriorly and a posterior portal was created. Arthroscope was brought in via the posterior portal position and diagnostic arthroscopy was performed. Under direct visualization, an anterior portal and cannula were created. The patient was noted to have a type 1 SLAP tear, which was debrided using the arthroscopic shaver. There were no significant instability of the superior labrum or anterior posterior labrum, which were stable to probe. There was fraying and tenosynovitis of the bicipital tendon both intra-articular and extra-articular. A biceps tenotomy was performed using a meniscal biter. The anchor was then debrided using the arthroscopic shaver. Subscapularis was found to have a small partial thickness tear at the superior border which was debrided using and arthroscopic shaver. There were no loose bodies within the axillary pouch. The patient was noted to have a full- thickness tear of the anterior aspect of the supraspinatus. A lateral portal was created and an arthroscopic shaver was then used to debride the greater tuberosity. The rotator cuff tear was noted to reduce to the greater tuberosity. Greater tuberosity was debrided using the arthroscopic shaver to create a bleeding bony bed. The undersurface of the rotator cuff tear was also debrided using the arthroscopic shaver to remove any unhealthy tissue. The arthroscope was then brought in the subacromial space. A subacromial bursectomy was performed using arthroscopic shaver. The patient was noted to have a full- thickness tear of the supraspinatus without significant retraction. The tear was reducible to the greater tuberosity. A lateral stab incision was made just lateral to the acromion. A punch was then placed, was then used to place a 5.5 mm double loaded Arthrex corkscrew. Sutures were then passed through the rotator cuff tear in anterior-posterior fashion, tied in a horizontal mattress fashion. The suture lines were then crisscrossed and 2 lateral Arthrex SwiveLock anchors were placed to increase surface area of the reduction onto the greater tuberosity of the rotator cuff tendon. The remaining suture limbs were then cut. There was some significant fraying of a coracoacromial ligament as well as some undersurface spurring of the acromion and acromioplasty was performed using a radiofrequency ablator and an arthroscopic bur. Arthroscopic instruments were then removed without complication. Wounds were then irrigated thoroughly with normal saline. Subcutaneous tissue was approximated using a 2-0 Vicryl. Portals were approximated using a 3-0 Monocryl. Sterile dressings were applied. Shoulder immobilizer was placed. The patient was awakened and transferred to PACU in stable condition. Postoperative Plan: The patient will be nonweightbearing in a shoulder immobilizer for 6 weeks. She will follow the medium rotator cuff repair protocol 4 weeks postoperatively. Complications: None Implants: Arthrex 5.5 mm corkscrew, 2-4.75 mm swivel lock Fluids & blood products: Per anesthesia record Transferred to: Recovery Room Condition: Good
--- NOTE | 2024-11-08 10:48 | RAD REPORT ---
EXAMINATION: Shoulder 1 View VIEWS: One view CLINICAL INDICATION: Female, 79 years old. s/p L RCR, SAD< biceps tenotomy COMPARISON: No prior exam. IMPRESSION: Single view of the left shoulder following rotator cuff repair. No fracture identified. The shoulder appears located.
[2024-11-08 15:16] VITALS: BP 122/48; TEMP 98; O2SAT 96
== END 2024-11-08 11:49 | disposition home or self-care (01) ==
LOC: OR 05:29
PROVIDERS: ATTEND Orthopaedic Surgery Sports Medicine
PROC: 0LM24ZZ Reattachment of Left Shoulder Tendon, Percutaneous Endoscopic Approach (ICD-10-PCS; 2024-11-08)
PROC: 0RQK4ZZ Repair Left Shoulder Joint, Percutaneous Endoscopic Approach (ICD-10-PCS; 2024-11-08)
PROC: 0RNK4ZZ Release Left Shoulder Joint, Percutaneous Endoscopic Approach (ICD-10-PCS; principal; 2024-11-08 07:30)
DX: M75.122 Complete rotator cuff tear or rupture of left shoulder, not specified as traumatic (principal); M75.42 Impingement syndrome of left shoulder; M75.22 Bicipital tendinitis, left shoulder; S43.432A Superior glenoid labrum lesion of left shoulder, initial encounter
CPT/HCPCS: 29827; 29826; 29807; 85025; 80048; 36415; 85610; 85730; 73020; A4216 ×2; J2704; J2710; J2003 ×2; J3010; J1100; J0171 ×2; J7120 ×2; J0690